=== PATIENT | male | born 1995 | race Two or more races ===

== ENCOUNTER 2021-06-19 21:24 | Emergency (ER) | payer OTHER ==
[~2021-06-19] VITALS: Ht 177.8 cm; Wt 72.7 kg
[2021-06-19] MEDS ORDERED: IBUPROFEN 600 MG TABLET PO ONE (22:15)
[2021-06-19] MEDS ORDERED: SILVER SULFADIAZINE 1% 25 GM CREAM TP ONE (22:15)
[2021-06-19] MEDS ORDERED: SILV20CR11 TP (22:24)
[2021-06-19] MEDS ORDERED: MORPHINE SULFATE 4 MG/ML SYRINGE IM ONE (22:30)
[2021-06-19 23:00] VITALS: BP 118/67
== END 2021-06-19 23:10 | disposition home or self-care (01) ==
LOC: EMS 21:24
DX: T23.171A Burn of first degree of right wrist, initial encounter (principal); X10.2XXA Contact with fats and cooking oils, initial encounter; Y93.89 Activity, other specified; Y92.098 Other place in other non-institutional residence as the place of occurrence of the external cause; Y99.8 Other external cause status
CPT/HCPCS: 16020; 96372; 99283; J2270